=== PATIENT | male | born 1995 | race African-American/Black ===

== ENCOUNTER 2018-09-04 20:35 | Emergency (ER) | payer BC ==
[2018-09-04] MEDS ORDERED: IBUPROFEN 400 MG TAB ONE (21:05)
--- NOTE | 2018-09-04 21:46 | EDPHYS ---
Physician Documentation [facility] Name: Delroy Herrera Age: 22 yrs Sex: Male : 1995 Arrival Date: 09/04/2018 Time: 20:37 Bed 13 Private MD: ED Physician Paulino Contreras HPI: 09/04 20:55 This 22 yrs old Black Male presents to ER via Ambulatory with complaints of Sinus cp Congestion, Fever. 20:55 The patient or guardian reports cough, that is intermittent, with no sputum. Onset: The cp symptoms/episode began/occurred 3 day(s) ago. 20:55 Mother reports patient was seen by PCP this past for similar complaints and cp prescribed tamiflu and Z-ivette for symptoms. Patient had negative test for flu at that time. Historical: - Allergies: 20:42 No Known Allergies; la1 - Home Meds: 20:42 None [Active]; la1 - PMHx: 20:42 None; la1 - PSHx: 20:42 None; la1 - Immunization history:: Adult Immunizations up to date. - Social history:: Smoking status: Patient/guardian denies using tobacco. - Ebola Screening: : No symptoms or risks identified at this time. ROS: 21:00 Constitutional: Positive for fever, Negative for poor PO intake. cp 21:00 ENT: Positive for sore throat, Negative for drainage from ear(s), ear pain, difficulty cp swallowing, difficulty handling secretions. 21:00 Neck: Negative for pain with movement, pain at rest, stiffness. 21:00 Respiratory: Positive for cough, with no reported sputum, Negative for wheezing. 21:00 Abdomen/GI: Negative for abdominal pain, vomiting, diarrhea, constipation. 21:00 Skin: Negative for rash. 21:00 Neuro: Negative for altered mental status, headache. 21:00 All other systems are negative. Exam: 21:05 Constitutional: The patient appears in no acute distress, alert, awake, non-toxic, well cp developed, well nourished, febrile. 21:05 Head/Face: Normocephalic, atraumatic. cp 21:05 Eyes: Periorbital structures: appear normal, Conjunctiva: normal, no exudate, no injection, Lids and lashes: appear normal, bilaterally. 21:05 ENT: External ear(s): are unremarkable, Ear canal(s): are normal, clear, TM's: bulging, is not appreciated, bilaterally, dullness, bilaterally, erythema, is not appreciated, bilaterally, Nose: is normal, Mouth: Lips: moist, Oral mucosa: pink and intact, moist, Posterior pharynx: Airway: no evidence of obstruction, patent, Tonsils: with erythema, no enlargement, no exudate, swelling, is not appreciated, erythema, that is mild, exudate, is not appreciated. 21:05 Neck: ROM/movement: is normal, is supple, without pain, no range of motions limitations, no meningismus, no nuchal rigidity. 21:05 Chest/axilla: Inspection: normal, Palpation: is normal, no crepitus, no tenderness. 21:05 Cardiovascular: Rate: tachycardic, Rhythm: regular. 21:05 Respiratory: the patient does not display signs of respiratory distress, Respirations: normal, no use of accessory muscles, no retractions, no splinting, no tachypnea, labored breathing, is not present, Breath sounds: decreased breath sounds, are not appreciated, stridor, is not appreciated, + upper airway congestion. wheezing: is not appreciated. 21:05 Abdomen/GI: Exam negative for discomfort, distension, guarding, Inspection: abdomen appears normal. Vital Signs: 20:42 BP 121 / 90; Pulse 101; Resp 16; Temp 100.4; Pulse Ox 100% on R/A; Height 6 ft. 1 in. la1 (185.42 cm); 20:44 Weight 73.03 kg; la1 21:20 BP 115 / 70; Pulse 95; Resp 18; Pulse Ox 98% ; rr5 22:16 BP 122 / 80; Pulse 90; Resp 17; Temp 98.7; Pulse Ox 100% on R/A; rr5 20:44 Body Mass Index 21.24 (73.03 kg, 185.42 cm) la1 MDM: 20:44 Patient medically screened. cp 21:00 Differential Diagnosis: Bronchitis Influenza Sinusitis Pharyngitis Otitis Media Viral cp Syndrome Pneumonia. 21:45 Data reviewed: vital signs, nurses notes, lab test result(s), radiologic studies, plain cp films. 21:45 Test interpretation: by ED physician or midlevel provider: plain radiologic studies. cp Counseling: I had a detailed discussion with the patient and/or guardian regarding: the historical points, exam findings, and any diagnostic results supporting the discharge/admit diagnosis, lab results, radiology results, to return to the emergency department if symptoms worsen or persist or if there are any questions or concerns that arise at home. ED course: VSS. Chest xray negative for focal infiltrates. 21:45 ED course: Recommend current medications and OTC tylenol and motrin for fever. 09/04 20:50 Order name: Influenza Screen (a \T\ B); Complete Time: 21:31 09/04 21:31 Interpretation: Normal except: FLUB FLU B ----- \T\nbsp; \T\nbsp; \T\nbsp; \T\nbsp; \T\nbsp; cp \T\nbsp; \T\nbsp; \T\nbsp; \T\nbsp; POSITIVE for FLU B protein antigen. 09/04 20:50 Order name: Strep; Complete Time: 21:31 09/04 21:32 Interpretation: Reviewed. 09/04 20:50 Order name: XRAY Chest Pa And Lat (2 Views) 09/04 21:15 Order name: Throat Culture EDMS Administered Medications: 20:56 Drug: Ibuprofen 800 mg Route: PO; rr5 22:13 Follow up: Response: No adverse reaction rr5 22:13 Not Given (Patient Refused): Tussionex Pennkinetic ER 5 ml PO once rr5 Disposition: 22:20 Chart complete. 22:25 Co-signature as Attending Physician, Paulino Contreras MD. rn Disposition: 09/04/18 21:46 Discharged to Home. Impression: Influenza due to other identified influenza virus - influenza B. - Condition is Stable. - Discharge Instructions: Influenza, Adult. - Prescriptions for Ibuprofen 800 mg Oral Tablet - take 1 tablet by ORAL route every 8 hours As needed take with food; 30 tablet. - Medication Reconciliation Form, Thank You Letter, Antibiotic Education, Prescription Opioid Use, Work release form form. - Follow up: Private Physician; When: 2 - 3 days; Reason: Worsening of condition. - Problem is new. - Symptoms have improved. Signatures: Dispatcher [employer] EDMS Paulino Contreras MD MD rn Attema, Lee, RN RN la1 Larry Enciso PA PA cp Roque, Raymond, RN RN rr5 Corrections: (The following items were deleted from the chart) 22:19 21:46 09/04/2018 21:46 Discharged to Home. Impression: Influenza due to other rr5 identified influenza virus - influenza B. Condition is Stable. Forms are Medication Reconciliation Form, Thank You Letter, Antibiotic Education, Prescription Opioid Use. Follow up: Private Physician; When: 2 - 3 days; Reason: Worsening of condition. Problem is new. Symptoms have improved. cp
--- NOTE | 2018-09-04 21:46 | ER ---
Nurse's Notes [facility] Name: Delroy Herrera Age: 22 yrs Sex: Male : 1995 Arrival Date: 09/04/2018 Time: 20:37 Bed 13 Private MD: Diagnosis: Influenza due to other identified influenza virus-influenza B Presentation: 09/04 20:41 Presenting complaint: Patient states: I have been having cough and fever since la1 Thursday. Seen at on , given z pack and tamiflu. Finished tamiful, started z pack yesterday. Transition of care: patient was not received from another setting of care. Onset of symptoms was September 04, 2018. Risk Assessment: Do you want to hurt yourself or someone else? Patient reports no desire to harm self or others. Initial Sepsis Screen: Does the patient meet any 2 criteria? No. Patient's initial sepsis screen is negative. Does the patient have a suspected source of infection? No. Patient's initial sepsis screen is negative. Care prior to arrival: None. 20:41 Method Of Arrival: Ambulatory la1 20:41 Acuity: NANCY 4 la1 Historical: - Allergies: 20:42 No Known Allergies; la1 - Home Meds: 20:42 None [Active]; la1 - PMHx: 20:42 None; la1 - PSHx: 20:42 None; la1 - Immunization history:: Adult Immunizations up to date. - Social history:: Smoking status: Patient/guardian denies using tobacco. - Ebola Screening: : No symptoms or risks identified at this time. Screenin:56 Abuse screen: Denies threats or abuse. Denies injuries from another. Nutritional rr5 screening: No deficits noted. Tuberculosis screening: No symptoms or risk factors identified. Fall Risk None identified. Total Yu Fall Scale indicates No Risk (0-24 pts). Assessment: 20:45 General: Appears in no apparent distress. uncomfortable, Behavior is calm, cooperative, rr5 appropriate for age. Pain: Denies pain. Neuro: Level of Consciousness is awake, alert, obeys commands, Oriented to person, place, time, situation, Appropriate for age. Cardiovascular: Capillary refill < 3 seconds Patient's skin is warm and dry. Respiratory: Reports cough that is non-productive, flu like symptoms Airway is patent Respiratory effort is even, unlabored, Respiratory pattern is regular, symmetrical. GI: No signs and/or symptoms were reported involving the gastrointestinal system. : No signs and/or symptoms were reported regarding the genitourinary system. EENT: No signs and/or symptoms were reported regarding the EENT system. Throat is clear with gag reflex present. Derm: Skin is intact, Skin temperature is warm. 20:45 Musculoskeletal: Capillary refill < 3 seconds. rr5 21:25 Reassessment: Patient appears in no apparent distress at this time. No changes from rr5 previously documented assessment. 22:18 Reassessment: Patient appears in no apparent distress at this time. Patient is alert, rr5 oriented x 3, equal unlabored respirations, skin warm/dry/pink. discharge instruction given and explained without complaints made. patient refused for tussionex medication. ED provider aware Patient states symptoms have improved. Vital Signs: 20:42 BP 121 / 90; Pulse 101; Resp 16; Temp 100.4; Pulse Ox 100% on R/A; Height 6 ft. 1 in. la1 (185.42 cm); 20:44 Weight 73.03 kg; la1 21:20 BP 115 / 70; Pulse 95; Resp 18; Pulse Ox 98% ; rr5 22:16 BP 122 / 80; Pulse 90; Resp 17; Temp 98.7; Pulse Ox 100% on R/A; rr5 20:44 Body Mass Index 21.24 (73.03 kg, 185.42 cm) la1 ED Course: 20:37 Patient arrived in ED. do 20:42 Triage completed. la1 20:42 Arm band placed on left wrist. la1 20:43 Magdaleno Hernandez PA is PHCP. jr8 20:43 Paulino Contreras MD is Attending Physician. jr8 20:43 PHCP role handed off by Magdaleno Hernandez PA cp 20:43 Larry Enciso PA is PHCP. cp 20:49 Sukhjinder Elkins RN is Primary Nurse. rr5 20:57 Patient has correct armband on for positive identification. Call light in reach. Pulse rr5 ox on. NIBP on. 21:24 XRAY Chest Pa And Lat (2 Views) In Process Unspecified. EDMS 22:15 No provider procedures requiring assistance completed. Patient did not have IV access rr5 during this emergency room visit. Administered Medications: 20:56 Drug: Ibuprofen 800 mg Route: PO; rr5 22:13 Follow up: Response: No adverse reaction rr5 22:13 Not Given (Patient Refused): Tussionex Pennkinetic ER 5 ml PO once rr5 Outcome: 21:46 Discharge ordered by . cp 22:15 Discharged to home ambulatory. rr5 22:15 Condition: stable 22:15 Discharge instructions given to patient, family, Instructed on discharge instructions, follow up and referral plans. medication usage, Demonstrated understanding of instructions, follow-up care, medications, Prescriptions given X 1. 22:19 Patient left the ED. rr5 Signatures: Dispatcher [employer] EDMS Magdaleno Hernandez PA PA jr8 Ricardo Duenas RN RN la1 Larry Enciso PA PA cp Ogletree, Danielle do Roque, Raymond RN RN rr5
[2018-09-04] MEDS ORDERED: HYDROCODONE/CHLORPHEN 5 ML/OSYR ONE (22:16)
--- NOTE | 2018-09-05 08:34 | RAD REPORT ---
EXAM DESCRIPTION: RAD - Chest Pa And Lat (2 Views) - 09/04/2018 9:30 pm CLINICAL HISTORY: Cough, fever COMPARISON: March 2017 no significant interval change TECHNIQUE: PA and lateral views of the chest were obtained. FINDINGS: The lungs are clear. Heart size is normal and central vasculature is within normal limit s. No pleural effusion or pneumothorax seen. No acute bony finding noted. No aortic abnormality. IMPRESSION: No acute cardiopulmonary process.
== END 2018-09-04 22:19 | disposition home or self-care (01) ==
LOC: ER 20:35
DX: J10.1 Influenza due to other identified influenza virus with other respiratory manifestations (principal)
CPT/HCPCS: 71046; 87070; 87081; 87804; 99284

== ENCOUNTER 2018-12-24 04:26 | Emergency (ER) | payer BC ==
[2018-12-24] MEDS ORDERED: IBUPROFEN 400 MG TAB ONE (04:52)
[2018-12-24] MEDS ORDERED: NA CHLORIDE 0.9% 1,000 ML ONE ×2 (04:53→07:23)
[2018-12-24] MEDS ORDERED: ACETAMINOPHEN 500 MG TAB ONE (04:53)
[2018-12-24] MEDS ORDERED: IBUPROFEN 200 MG TAB PO ONE (04:53)
[2018-12-24 05:43] LABS: ALT/SGPT 19 U/L (12-78); AST/SGOT 17 U/L (15-37); Absolute Lymphocytes (CBC) 0.7 K/uL (0.7-4.9); Albumin 4.2 g/dL (3.4-5.0); Alkaline Phosphatase 53 U/L (45-117); BUN Blood Urea Nitrogen 17 mg/dL (7-18); Basophils % 0.4 % (0-1.3); Bicarbonate 27 mmol/L (21-32); Bilirubin Direct 0.2 mg/dL (0-0.2); Bilirubin Total 0.7 mg/dL (0.2-1.0); Glucose Level 87 mg/dL (74-106); Hematocrit 41.6 % (39.6-49.0); Lymphocytes % 12.2 % (15.3-44.8); MPV 8.4 fL (7.6-11.3); Potassium 3.7 mmol/L (3.5-5.1); Protein, Total 8.2 g/dL (6.4-8.2); RBC Red Blood Cell Count 5.04 M/uL (4.33-5.43); Sodium Level 140 mmol/L (136-145)
[2018-12-24 06:37] LABS: Urine Bacteria <20 /HPF (NONE SEEN); Urine Culture Reflex Order NOT NEEDED; Urine RBC NONE SEEN /HPF (NONE SEEN)
[2018-12-24 07:16] LABS: Urine Blood NEGATIVE (NEG); Urine Glucose NEGATIVE (NEG); Urine Protein NEGATIVE (NEG); Urine Specific Gravity 1.025 (1.005-1.030); Urine pH 7.5 (5.0-7.0)
--- NOTE | 2018-12-24 08:42 | RAD REPORT ---
EXAM DESCRIPTION: Adrienne Single View12/24/2018 5:11 am CLINICAL HISTORY: Fever COMPARISON: August 2018 FINDINGS: Lungs are hyperaerated. The lungs appear clear of acute infiltrate. The heart is normal size IMPRESSION: No acute abnormalities displayed
--- NOTE | 2018-12-24 09:28 | ER ---
Nurse's Notes [facility] Name: Delroy Herrera Age: 23 yrs Sex: Male : 1995 Arrival Date: 12/24/2018 Time: 04:29 Bed 8 Private MD: Diagnosis: Viral infection of unspecified site Presentation: 12/24 04:41 Presenting complaint: Patient states: fever and shivering started at 0230. pt mother ak1 stated she was admitted to hospital with pneumonia, mono and was septic last week. Transition of care: patient was not received from another setting of care. Onset of symptoms was December 24, 2018. Risk Assessment: Do you want to hurt yourself or someone else? Patient reports no desire to harm self or others. Initial Sepsis Screen: Does the patient meet any 2 criteria? Yes Does the patient have a suspected source of infection? No. Patient's initial sepsis screen is negative. Care prior to arrival: None. 04:41 Method Of Arrival: Ambulatory ak1 04:41 Acuity: NANCY 3 ak1 Triage Assessment: 04:43 General: Appears uncomfortable, Behavior is calm, cooperative, appropriate for age. ak1 Pain: Complains of pain in body aches. EENT: Nares with drainage noted. Neuro: Level of Consciousness is awake, alert, obeys commands, Oriented to person, place, time, situation, Appropriate for age Solar Lab Technician are equal bilaterally Moves all extremities. Gait is steady, Speech is normal. Cardiovascular: No deficits noted. Respiratory: No deficits noted. GI: No signs and/or symptoms were reported involving the gastrointestinal system. : No signs and/or symptoms were reported regarding the genitourinary system. Derm: Skin is intact, Skin is dry, Skin temperature is hot. Musculoskeletal: Reports general body aches. Historical: - Allergies: 04:43 No Known Allergies; ak1 - Home Meds: 04:43 None [Active]; ak1 - PMHx: 04:43 None; ak1 - PSHx: 04:43 None; ak1 - Immunization history:: Adult Immunizations up to date. - Social history:: Smoking status: Patient/guardian denies using tobacco. - Ebola Screening: : No symptoms or risks identified at this time. - Family history:: as noted above. - Hospitalizations: : No recent hospitalization is reported. Screenin:45 Abuse screen: Denies threats or abuse. Denies injuries from another. Nutritional ak1 screening: No deficits noted. Tuberculosis screening: No symptoms or risk factors identified. Fall Risk None identified. Assessment: 05:00 General: Appears uncomfortable, well groomed, Behavior is calm, cooperative, jv1 appropriate for age, Reports chills for 0-12 hours. Pain: Denies pain. Neuro: Level of Consciousness is awake, alert, obeys commands, Oriented to person, place, time, situation. Cardiovascular: Heart tones S1 S2 present Capillary refill < 3 seconds Patient's skin is warm and dry. Pulses are all present. Rhythm is sinus tachycardia. Respiratory: Airway is patent Respiratory effort is even, unlabored, Respiratory pattern is regular, symmetrical, Breath sounds are clear bilaterally. GI: No signs and/or symptoms were reported involving the gastrointestinal system. : No signs and/or symptoms were reported regarding the genitourinary system. EENT: No signs and/or symptoms were reported regarding the EENT system. Derm: Skin is intact, is healthy with good turgor, Skin is dry, Skin is normal, Skin temperature is hot. Musculoskeletal: Circulation, motion, and sensation intact. Range of motion: intact in all extremities. 06:00 Reassessment: Patient appears in no apparent distress at this time. Patient and/or jv1 family updated on plan of care and expected duration. Pain level reassessed. Patient is alert, oriented x 3, equal unlabored respirations, skin warm/dry/pink. pt's eyes closed, resp even and unlabored, call light within reach. instructed to call for any assistance Patient denies pain at this time. 07:00 Reassessment: RECD REPORT FROM RAHUL DEY. 23YO BM P/W FEVER, TMAX 102.1. ALL CURRENT bp ORDERS COMPLETED. 08:00 Reassessment: Patient appears in no apparent distress at this time. Patient and/or hb family updated on plan of care and expected duration. Pain level reassessed. Patient is alert, oriented x 3, equal unlabored respirations, skin warm/dry/pink. 08:27 Reassessment: Pt ambulated to bathroom without assistance with steady gait. hb Vital Signs: 04:43 BP 127 / 86; Pulse 125; Resp 20; Temp 102.2(O); Pulse Ox 100% on R/A; Weight 72.57 kg ak1 (R); Height 6 ft. 0 in. (182.88 cm) (R); Pain 0/10; 06:10 BP 134 / 86; Pulse 104; Resp 23 S; Temp 102.1(O); Pulse Ox 97% on R/A; Pain 0/10; jv1 06:10 Temp 102.1; Pain 0/10; jv1 06:10 Temp 102.1; Pain 0/10; jv1 06:56 BP 121 / 83; Pulse 98; Resp 18; Temp 101.2; Pulse Ox 97% ; Pain 0/10; jv1 08:00 BP 127 / 74; Pulse 72; Resp 15; Temp 97.6(TE); Pulse Ox 100% on R/A; hb 04:43 Body Mass Index 21.70 (72.57 kg, 182.88 cm) ak1 ED Course: 04:29 Patient arrived in ED. ag3 04:37 Gigi Schuler MD is Attending Physician. wa 04:41 Sonya Alvarez, TIBURCIO is Primary Nurse. ak1 04:42 Triage completed. ak1 04:43 Arm band placed on Patient placed in an exam room, on a stretcher, on pulse oximetry, ak1 Patient notified of wait time. 04:45 Patient has correct armband on for positive identification. Bed in low position. Call ak1 light in reach. Side rails up X 1. Adult w/ patient. Pulse ox on. NIBP on. 05:05 Inserted saline lock: 20 gauge in right antecubital area, using aseptic technique. jv1 Blood collected. 05:05 Initial lab(s) drawn, by co, sent to lab. jv1 05:07 Chest Single View XRAY In Process Unspecified. EDMS 05:53 Urine collected: clean catch specimen, clear, sent to lab. jv1 07:07 Report given to TIBURCIO Ladd. jv1 07:13 Attending Physician role handed off by Gigi Schuler MD kdr 07:13 Philippe Bowles MD is Attending Physician. kdr Administered Medications: 05:10 Drug: Acetaminophen 1000 mg Route: PO; jv1 06:10 Follow up: Temp 102.1; Pain 0/10 Adult; Response: No adverse reaction; Temperature is jv1 unchanged 05:10 Drug: Motrin 600 mg Route: PO; jv1 06:10 Follow up: Temp 102.1; Pain 0/10 Adult; Response: No adverse reaction; Temperature is jv1 unchanged 05:10 Drug: NS 0.9% 1000 ml Route: IV; Rate: 1 bolus; Site: right antecubital; jv1 05:45 Follow up: Response: No adverse reaction; IV Status: Completed infusion; IV Intake: jv1 1000ml 07:27 Drug: NS 0.9% 1000 ml Route: IV; Rate: 1 bolus; Site: right antecubital; hb 08:28 Follow up: Response: No adverse reaction; IV Status: Completed infusion; IV Intake: hb 1000ml Intake: 05:45 IV: 1000ml; Total: 1000ml. jv1 08:28 IV: 1000ml; Total: 2000ml. hb Outcome: 09:27 Discharge ordered by . kdr 10:23 Patient left the ED. hb Signatures: Dispatcher [employer] EDMS Philippe Bowles MD MD kdr Krenek, Amber RN RN ak1 Zakiya Velez RN RN Gigi Schuler MD MD ar Wilberto Lemus, RN RN bp Emily Florian, RN TIBURCIO jv1 Ana Flood ag3 Corrections: (The following items were deleted from the chart) 05:34 05:24 General: Appears uncomfortable, well groomed, Behavior is calm, cooperative, jv1 appropriate for age, Reports chills for 0-12 hours, jv1 05:34 05:24 Pain: Denies pain. jv1 jv1 05:34 05:24 Neuro: Level of Consciousness is awake, alert, obeys commands, Oriented to jv1 person, place, time, situation, jv1 05:34 05:24 Cardiovascular: Heart tones S1 S2 present Capillary refill < 3 seconds Patient's jv1 skin is warm and dry. Pulses are all present. Rhythm is sinus tachycardia jv1 05:34 05:24 Respiratory: Airway is patent Respiratory effort is even, unlabored, Respiratory jv1 pattern is regular, symmetrical, Breath sounds are clear bilaterally. jv1 05:34 05:24 GI: No signs and/or symptoms were reported involving the gastrointestinal system. jv1 jv1 05:34 05:24 : No signs and/or symptoms were reported regarding the genitourinary system. jv1jv1 :34 05:24 EENT: No signs and/or symptoms were reported regarding the EENT system. jv1 jv1 :34 05:24 Derm: Skin is intact, is healthy with good turgor, Skin is dry, Skin is normal, jv1 Skin temperature is hot jv1 :34 05:24 Musculoskeletal: Circulation, motion, and sensation intact. Range of motion: jv1 intact in all extremities, jv1 06:33 06:00 Reassessment: Patient appears in no apparent distress at this time. Patient jv1 and/or family updated on plan of care and expected duration. Pain level reassessed. Patient is alert, oriented x 3, equal unlabored respirations, skin warm/dry/pink. pt's eyes closed, resp even and unlabored, call light within reach. instructed to call for any assistance jv1 08:31 08:00 BP 127 / 74; Pulse 72bpm; Resp 15bpm; Pulse Ox 100% RA; hb hb
--- NOTE | 2018-12-24 09:28 | EDPHYS ---
Physician Documentation [facility] Name: Delroy Herrera Age: 23 yrs Sex: Male : 1995 Arrival Date: 12/24/2018 Time: 04:29 Bed 8 Private MD: ED Physician Philippe Bowles HPI: 12/24 04:49 This 23 yrs old Black Male presents to ER via Ambulatory with complaints of Fever. wa 04:49 The patient reports fever, that was measured at 102.2 degrees Fahrenheit. Onset: The wa symptoms/episode began/occurred today. Modifying factors: there are no obvious modifying factors. Associated signs and symptoms: Pertinent negatives: abdominal pain, backache, chills, cough, diarrhea, headache, myalgias, runny nose, sinus drainage, skin rash, shortness of breath, sore throat. Severity of symptoms: At their worst the symptoms were moderate in the emergency department the symptoms are unchanged. The patient has not experienced similar symptoms in the past. The patient has not recently seen a physician. 05:12 fever today. mum had mono and pna 2 weeks ego, wants to know if has same. denies JUAREZ, wa SOB, cough, CP or abd pain . Historical: - Allergies: 04:43 No Known Allergies; ak1 - Home Meds: 04:43 None [Active]; ak1 - PMHx: 04:43 None; ak1 - PSHx: 04:43 None; ak1 - Immunization history:: Adult Immunizations up to date. - Social history:: Smoking status: Patient/guardian denies using tobacco. - Ebola Screening: : No symptoms or risks identified at this time. - Family history:: as noted above. - Hospitalizations: : No recent hospitalization is reported. ROS: 05:15 Eyes: Negative for injury, pain, redness, and discharge, ENT: Negative for injury, wa pain, and discharge, Neck: Negative for injury, pain, and swelling, Cardiovascular: Negative for chest pain, palpitations, and edema, Respiratory: Negative for shortness of breath, cough, wheezing, and pleuritic chest pain, Abdomen/GI: Negative for abdominal pain, nausea, vomiting, diarrhea, and constipation, Back: Negative for injury and pain, : Negative for injury, bleeding, discharge, and swelling, MS/Extremity: Negative for injury and deformity, Skin: Negative for injury, rash, and discoloration, Neuro: Negative for headache, weakness, numbness, tingling, and seizure. 05:15 Constitutional: Positive for chills, fever. 05:15 All other systems are negative. Exam: 05:16 Head/Face: Normocephalic, atraumatic. Eyes: Pupils equal round and reactive to light, wa extra-ocular motions intact. Lids and lashes normal. Conjunctiva and sclera are non-icteric and not injected. Cornea within normal limits. Periorbital areas with no swelling, redness, or edema. ENT: Nares patent. No nasal discharge, no septal abnormalities noted. Tympanic membranes are normal and external auditory canals are clear. Oropharynx with no redness, swelling, or masses, exudates, or evidence of obstruction, uvula midline. Mucous membranes moist. Neck: Trachea midline, no thyromegaly or masses palpated, and no cervical lymphadenopathy. Supple, full range of motion without nuchal rigidity, or vertebral point tenderness. No Meningismus. Chest/axilla: Normal chest wall appearance and motion. Nontender with no deformity. No lesions are appreciated. Cardiovascular: Regular rate and rhythm with a normal S1 and S2. No gallops, murmurs, or rubs. Normal PMI, no JVD. No pulse deficits. Respiratory: Lungs have equal breath sounds bilaterally, clear to auscultation and percussion. No rales, rhonchi or wheezes noted. No increased work of breathing, no retractions or nasal flaring. Abdomen/GI: Soft, non-tender, with normal bowel sounds. No distension or tympany. No guarding or rebound. No evidence of tenderness throughout. Back: No spinal tenderness. No costovertebral tenderness. Full range of motion. Skin: Warm, dry with normal turgor. Normal color with no rashes, no lesions, and no evidence of cellulitis. MS/ Extremity: Pulses equal, no cyanosis. Neurovascular intact. Full, normal range of motion. Neuro: Awake and alert, GCS 15, oriented to person, place, time, and situation. Cranial nerves II-XII grossly intact. Motor strength 5/5 in all extremities. Sensory grossly intact. Cerebellar exam normal. Normal gait. Psych: Awake, alert, with orientation to person, place and time. Behavior, mood, and affect are within normal limits. 05:16 Constitutional: The patient appears in no acute distress, alert, febrile. Vital Signs: 04:43 BP 127 / 86; Pulse 125; Resp 20; Temp 102.2(O); Pulse Ox 100% on R/A; Weight 72.57 kg ak1 (R); Height 6 ft. 0 in. (182.88 cm) (R); Pain 0/10; 06:10 BP 134 / 86; Pulse 104; Resp 23 S; Temp 102.1(O); Pulse Ox 97% on R/A; Pain 0/10; jv1 06:10 Temp 102.1; Pain 0/10; jv1 06:10 Temp 102.1; Pain 0/10; jv1 06:56 BP 121 / 83; Pulse 98; Resp 18; Temp 101.2; Pulse Ox 97% ; Pain 0/10; jv1 08:00 BP 127 / 74; Pulse 72; Resp 15; Temp 97.6(TE); Pulse Ox 100% on R/A; hb 04:43 Body Mass Index 21.70 (72.57 kg, 182.88 cm) ak1 MDM: 04:37 Patient medically screened. 05:16 Differential diagnosis: viral Infection, bacterial infection, pneumonia UTI, wa meningitis. Data reviewed: vital signs, nurses notes. 06:28 Test interpretation: by ED physician or midlevel provider: CXR nml. labs wnl. . 07:23 ED course: The patient is still feeling poor but much better than when he arrived. With kdr interaction, he was intermittently tachycardic, but temp has improved. 12/24 04:47 Order name: Basic Metabolic Panel; Complete Time: 06:28 12/24 04:47 Order name: CBC with Diff; Complete Time: 06:28 12/24 04:47 Order name: Lactate; Complete Time: 06:28 12/24 04:47 Order name: LFT's; Complete Time: 06:28 12/24 04:47 Order name: Procalcitonin; Complete Time: 07:10 12/24 04:47 Order name: Urine Microscopic Only; Complete Time: 07:10 12/24 04:47 Order name: Chest Single View XRAY; Complete Time: 09:27 12/24 04:47 Order name: [place] Screen Profile; Complete Time: 06:28 nv 12/24 04:48 Order name: Strep; Complete Time: 06:28 nv 12/24 05:55 Order name: Urine Dipstick--Ancillary (enter results); Complete Time: 07:17 12/24 05:57 Order name: Throat Culture EDMS 12/24 04:47 Order name: Cardiac monitoring; Complete Time: 05:21 nv 12/24 04:47 Order name: IV Saline Lock - Large Bore; Complete Time: 05:16 nv 12/24 04:47 Order name: Labs collected and sent; Complete Time: 05:16 nv 12/24 04:47 Order name: O2 Per Protocol; Complete Time: 04:48 nv 12/24 04:47 Order name: O2 Sat Monitoring; Complete Time: 04:48 nv 12/24 04:47 Order name: Urine Dipstick-Ancillary (obtain specimen); Complete Time: 05:52 nv Administered Medications: 05:10 Drug: Acetaminophen 1000 mg Route: PO; jv1 06:10 Follow up: Temp 102.1; Pain 0/10 Adult; Response: No adverse reaction; Temperature is jv1 unchanged 05:10 Drug: Motrin 600 mg Route: PO; jv1 06:10 Follow up: Temp 102.1; Pain 0/10 Adult; Response: No adverse reaction; Temperature is jv1 unchanged 05:10 Drug: NS 0.9% 1000 ml Route: IV; Rate: 1 bolus; Site: right antecubital; jv1 05:45 Follow up: Response: No adverse reaction; IV Status: Completed infusion; IV Intake: jv1 1000ml 07:27 Drug: NS 0.9% 1000 ml Route: IV; Rate: 1 bolus; Site: right antecubital; hb 08:28 Follow up: Response: No adverse reaction; IV Status: Completed infusion; IV Intake: hb 1000ml Disposition: 12/24/18 09:27 Discharged to Home. Impression: Viral infection of unspecified site. - Condition is Stable. - Discharge Instructions: Viral Respiratory Infection, [id number], Fever, Adult, [id number]. - Prescriptions for Tylenol 325 mg Oral tablet - take 2 tablet by ORAL route every 4 hours as needed; 20 tablet. Ibuprofen 800 mg Oral Tablet - take 1 tablet by ORAL route every 8 hours As needed take with food; 30 tablet. - Medication Reconciliation Form, Thank You Letter, Work release form, SBAR form form. - Follow up: Private Physician; When: 2 - 3 days; Reason: If symptoms return, Further diagnostic work-up, Recheck today's complaints, Continuance of care, Re-evaluation by your physician. - Problem is new. - Symptoms have improved. Signatures: Dispatcher [employer] EDMS Philippe Bowles MD MD [facility] Sonya Alvarez RN RN ak1 Zakiya Velez RN RN Gigi Schuler MD MD nv Emily Florian RN RN jv1 Corrections: (The following items were deleted from the chart) 10:23 09:27 12/24/2018 09:27 Discharged to Home. Impression: Viral infection of unspecified hb site. Condition is Stable. Forms are SBAR form, Medication Reconciliation Form, Thank You Letter, Antibiotic Education, Prescription Opioid Use. Follow up: Private Physician; When: 2 - 3 days; Reason: If symptoms return, Further diagnostic work-up, Recheck today's complaints, Continuance of care, Re-evaluation by your physician. Problem is new. Symptoms have improved. kdr
== END 2018-12-24 10:23 | disposition home or self-care (01) ==
LOC: ER 04:26
DX: B34.9 Viral infection, unspecified (principal); R50.9 Fever, unspecified
CPT/HCPCS: 36415; 71045; 80048; 80076; 81003; 81015; 83605; 84145; 85025; 86308; 87070; 87081; 96360; 96361; 99284; J7030

== ENCOUNTER 2018-12-27 08:14 | Emergency (ER) | payer BC ==
[2018-12-27] MEDS ORDERED: ACETAMINOPHEN 500 MG TAB ONE (08:48)
[2018-12-27] MEDS ORDERED: KETOROLAC 30 MG/ML INJ ONE (08:48)
[2018-12-27] MEDS ORDERED: NA CHLORIDE 0.9% 1,000 ML ONE (08:53)
[2018-12-27 09:19] LABS: Absolute Lymphocytes (CBC) 0.8 K/uL (0.7-4.9); Basophils % 0.5 % (0-1.3); Hematocrit 42.7 % (39.6-49.0); Lymphocytes % 17.5 % (15.3-44.8); MPV 8.4 fL (7.6-11.3); RBC Red Blood Cell Count 5.22 M/uL (4.33-5.43)
--- NOTE | 2018-12-27 09:27 | RAD REPORT ---
EXAM DESCRIPTION: CT - Head Brain Wo Cont - 12/27/2018 9:11 am CLINICAL HISTORY: Headache, fever COMPARISON: None. TECHNIQUE: Axial 5 mm thick images of the head were obtained without IV contrast. All CT scans are performed using dose optimization technique as appropriate and may include automated exposure control or mA/KV adjustment according to patient size. FINDINGS: No intracranial hemorrhage, mass, edema or shift of mid-line structures. No acute infarcti on changes seen. No abnormal extra-axial fluid collections. Ventricles are normal. Mastoid air cells and visualized portions of the paranasal sinuses are clear. No acute bony findings. IMPRESSION: Negative non-contrast CT head examination.
[2018-12-27 09:37] LABS: ALT/SGPT 23 U/L (12-78); AST/SGOT 19 U/L (15-37); Alkaline Phosphatase 49 U/L (45-117); BUN Blood Urea Nitrogen 9 mg/dL (7-18); Bicarbonate 26 mmol/L (21-32); Bilirubin Direct 0.1 mg/dL (0-0.2); Bilirubin Total 0.4 mg/dL (0.2-1.0); Glucose Level 94 mg/dL (74-106); Potassium 3.6 mmol/L (3.5-5.1); Protein, Total 8.2 g/dL (6.4-8.2); Sodium Level 138 mmol/L (136-145)
[2018-12-27 11:31] LABS: Urine Blood TRACE (NEG); Urine Glucose NEGATIVE (NEG); Urine Protein NEGATIVE (NEG); Urine Specific Gravity <1.005 (1.005-1.030); Urine pH 5.5 (5.0-7.0)
[2018-12-27] MEDS ORDERED: LORazepam 2 MG/ML VIAL ONE (12:05)
[2018-12-27] MEDS ORDERED: FENTANYL CITR 100 MCG/2 ML ONE (12:06)
[2018-12-27 13:02] LABS: CSF Glucose 45 mg/dL (40-70)
[2018-12-27 13:44] LABS: Appearance CLEAR (CLEAR); Body Fluid Source CSF; Color of fluid Colorless (COLORLESS)
[2018-12-27 13:46] LABS: Body Fluid WBC 8 /mm^3
[2018-12-27 13:51] LABS: Appearance CLEAR (CLEAR); Body Fluid Source CSF; Body Fluid WBC 4 /mm^3; Color of fluid Colorless (COLORLESS); Fluid Total Volume 4 ml
--- NOTE | 2018-12-27 14:41 | EDPHYS ---
Physician Documentation [facility] Name: Delroy Herrera Age: 23 yrs Sex: Male : 1995 Arrival Date: 12/27/2018 Time: 08:19 Bed 5 Private MD: ED Physician Gigi Schuler HPI: 12/27 08:52 This 23 yrs old Black Male presents to ER via Ambulatory with complaints of Headache, wa Fever. 08:52 The patient complains of pain to the diffuse. The patient describes the headache as wa aching. Onset: The symptoms/episode began/occurred 4 day(s) ago. Associated signs and symptoms: Pertinent positives: fever, Pertinent negatives: altered mental status, nausea, neck stiffness, Photophobia rash, sinus congestion, vomiting, weakness. 08:53 Severity of symptoms: At its worst the pain was moderate, in the emergency department wa the pain is unchanged. Headache History: Denies prior headaches. The symptoms are alleviated by nothing. the symptoms are aggravated by nothing. The patient has not experienced similar symptoms in the past. The patient has been recently seen by a physician: 3 day(s) ago, in this ED. Seen 3 days ago in this ED. at the time had a fever x 3 hours with malaise with no other specific complaints. work up was negative. improved with ED interventions and went home. states was improving but now 1 day of JUAREZ. still with fever and chills. denies photophobia. denies neck stiffness, denies N/V. Historical: - Allergies: 08:31 No Known Allergies; jl7 - Home Meds: 08:31 None [Active]; jl7 - PMHx: 08:31 None; jl7 - PSHx: 08:31 None; jl7 - Immunization history:: Adult Immunizations unknown. - Social history:: Smoking status: Patient/guardian denies using tobacco. - Ebola Screening: : No symptoms or risks identified at this time. - Family history:: not pertinent. - Hospitalizations: : No recent hospitalization is reported. ROS: 08:57 Eyes: Negative for injury, pain, redness, and discharge, ENT: Negative for injury, wa pain, and discharge, Neck: Negative for injury, pain, and swelling, Cardiovascular: Negative for chest pain, palpitations, and edema, Respiratory: Negative for shortness of breath, cough, wheezing, and pleuritic chest pain, Abdomen/GI: Negative for abdominal pain, nausea, vomiting, diarrhea, and constipation, Back: Negative for injury and pain, : Negative for injury, bleeding, discharge, and swelling, MS/Extremity: Negative for injury and deformity, Skin: Negative for injury, rash, and discoloration. 08:57 Constitutional: Positive for body aches, chills, fatigue, fever, malaise, Negative for poor PO intake, weight loss. 08:57 Neuro: Positive for headache, Negative for altered mental status, dizziness, gait disturbance, loss of consciousness, seizure activity, speech changes, syncope, visual changes, weakness. 08:57 All other systems are negative. Exam: 08:59 Head/Face: Normocephalic, atraumatic. Eyes: Pupils equal round and reactive to light, wa extra-ocular motions intact. Lids and lashes normal. Conjunctiva and sclera are non-icteric and not injected. Cornea within normal limits. Periorbital areas with no swelling, redness, or edema. ENT: Nares patent. No nasal discharge, no septal abnormalities noted. Tympanic membranes are normal and external auditory canals are clear. Oropharynx with no redness, swelling, or masses, exudates, or evidence of obstruction, uvula midline. Mucous membranes moist. Neck: Trachea midline, no thyromegaly or masses palpated, and no cervical lymphadenopathy. Supple, full range of motion without nuchal rigidity, or vertebral point tenderness. No Meningismus. Chest/axilla: Normal chest wall appearance and motion. Nontender with no deformity. No lesions are appreciated. Cardiovascular: Regular rate and rhythm with a normal S1 and S2. No gallops, murmurs, or rubs. Normal PMI, no JVD. No pulse deficits. Respiratory: Lungs have equal breath sounds bilaterally, clear to auscultation and percussion. No rales, rhonchi or wheezes noted. No increased work of breathing, no retractions or nasal flaring. Abdomen/GI: Soft, non-tender, with normal bowel sounds. No distension or tympany. No guarding or rebound. No evidence of tenderness throughout. Back: No spinal tenderness. No costovertebral tenderness. Full range of motion. Skin: Warm, dry with normal turgor. Normal color with no rashes, no lesions, and no evidence of cellulitis. MS/ Extremity: Pulses equal, no cyanosis. Neurovascular intact. Full, normal range of motion. Psych: Awake, alert, with orientation to person, place and time. Behavior, mood, and affect are within normal limits. 08:59 Constitutional: The patient appears in no acute distress, alert, low grade fever. alert 08:59 Neuro: Orientation: is normal, Mentation: is normal, Cranial nerves: grossly normal, Cerebellar function: is grossly normal, Motor: is normal, Sensation: is normal, Gait: is steady. Vital Signs: 08:31 BP 129 / 84; Pulse 80; Resp 16 S; Temp 99.9(O); Pulse Ox 97% on R/A; Pain 8/10; jl7 09:36 BP 127 / 79; Pulse 79; Resp 16; Temp 98.7(O); Pulse Ox 100% on R/A; tw2 10:32 BP 121 / 88; Pulse 75; Resp 18; Pulse Ox 100% on R/A; tw2 11:21 BP 124 / 83; Pulse 67; Resp 17; Pulse Ox 100% on R/A; tw2 12:20 BP 124 / 85; Pulse 78; Resp 17; Pulse Ox 100% on R/A; tw2 13:19 BP 129 / 87; Pulse 62; Resp 16 S; Pulse Ox 100% on R/A; jl7 Procedures: 12:38 Lumbar Puncture: Patient placed in sitting position. Prepped with Betadine. Draped wa using sterile technique. Collected 20 ml's of clear fluid. Puncture site dressed with band aid, Patient tolerated well. MDM: 08:24 Patient medically screened. wa 08:59 Differential diagnosis: viral syndrome? consider acute meningitis. will work up and wa reassess. 11:45 Data reviewed: vital signs, nurses notes, lab test result(s), noted for mild wa luekopenia. ED course: improved. pt refusing LP. risks explained and accepted by this pt with capacity. 14:38 Test interpretation: by ED physician or midlevel provider: LP results noted negative wa for meningitis. Response to treatment: the patient's symptoms have markedly improved after treatment. 14:40 ED course: improved. noted eating a meal in ED prior to d/c. 12/27 08:41 Order name: Basic Metabolic Panel; Complete Time: 09:53 wa 12/27 08:41 Order name: CBC with Diff; Complete Time: 09:53 nv 12/27 08:41 Order name: Hepatic Function; Complete Time: 09:53 nv 12/27 08:42 Order name: [place] Screen Profile; Complete Time: 10:06 nv 12/27 08:45 Order name: CSF Bacterial Antigens (tube 1) nv 12/27 08:45 Order name: Csf Culture nv 12/27 08:41 Order name: CT Head Brain wo Cont; Complete Time: 09:53 nv 12/27 08:45 Order name: Fluid Cell Count,Body; Complete Time: 13:59 nv 12/27 08:45 Order name: Spinal Fluid Profile; Complete Time: 13:59 nv 12/27 11:19 Order name: Urine Dipstick--Ancillary (enter results); Complete Time: 11:45 12/27 11:24 Order name: HIV (1; Complete Time: 12:00 EDMS 08 08:41 Order name: Cardiac monitoring; Complete Time: 08:44 nv 12/27 08:41 Order name: IV Saline Lock; Complete Time: 09:12 nv 12/27 08:41 Order name: Labs collected and sent; Complete Time: 09:12 nv 12/27 08:41 Order name: NPO; Complete Time: 09:12 nv 12/27 08:41 Order name: O2 Sat Monitoring; Complete Time: 08:44 nv 12/27 08:41 Order name: Urine Dipstick-Ancillary (obtain specimen); Complete Time: 12:16 nv 12/27 08:45 Order name: LP Consents; Complete Time: 12:15 nv 12/27 08:45 Order name: LP Setup; Complete Time: 12:15 nv Administered Medications: 08:51 Drug: Tylenol 1000 mg Route: PO; tw2 09:30 Follow up: Response: No adverse reaction; Pain is decreased jl7 09:07 Drug: TORadol 30 mg Route: IVP; Site: right antecubital; tw2 09:30 Follow up: Response: No adverse reaction; Pain is decreased jl7 09:11 Drug: NS 0.9% 1000 ml Route: IV; Rate: 1 bolus; Site: right antecubital; tw2 10:00 Follow up: Response: No adverse reaction; IV Status: Completed infusion; IV Intake: jl7 1000ml 12:14 Drug: Ativan 1 mg Route: IVP; Site: right antecubital; jl7 12:45 Follow up: Response: No adverse reaction jl7 12:15 Drug: fentaNYL (PF) 50 mcg Route: IVP; Site: right antecubital; jl7 12:45 Follow up: Response: No adverse reaction jl7 Disposition: 12/27/18 14:40 Discharged to Home. Impression: acute headache, acute fever. - Condition is Stable. - Prescriptions for ketorolac 10 mg Oral tablet - take 1 tablet by ORAL route every 8 hours not to exceed 40 mg in 24hrs; 15 tablet. Zofran 4 mg Oral Tablet - take 1 tablet by ORAL route every 12 hours As needed; 20 tablet. - Work release form, Medication Reconciliation Form, Thank You Letter, Antibiotic Education, Prescription Opioid Use form. - Follow up: Private Physician; When: 1 - 2 days; Reason: Recheck today's complaints. - Problem is new. - Symptoms have improved. - Notes: please take medication as prescribed. return immediately for worsening concerns Signatures: Dispatcher [employer] EDAZ Yusra Lemos RN RN tw2 María Elena Prado RN RN jl7 Gigi Schuler MD MD wa Corrections: (The following items were deleted from the chart) 11:23 08:52 HIV AG/AB SCREEN ordered. [facility] 15:00 14:40 12/27/2018 14:40 Discharged to Home. Impression: acute headache; acute fever. jl7 Condition is Stable. Forms are Medication Reconciliation Form, Thank You Letter, Antibiotic Education, Prescription Opioid Use. Follow up: Private Physician; When: 1 - 2 days; Reason: Recheck today's complaints. Problem is new. Symptoms have improved. wa
--- NOTE | 2018-12-27 14:41 | ER ---
Nurse's Notes [facility] Name: Delroy Herrera Age: 23 yrs Sex: Male : 1995 Arrival Date: 12/27/2018 Time: 08:19 Bed 5 Private MD: Diagnosis: acute headache;acute fever Presentation: 12/27 08:29 Presenting complaint: Patient states: Fever since Thursday, JUAREZ since yesterday. Was here jl7 on Thursday but still doesn't feel good. Denies N/V/D. Transition of care: patient was not received from another setting of care. Onset of symptoms was December 24, 2018. Risk Assessment: Do you want to hurt yourself or someone else? Patient reports no desire to harm self or others. Initial Sepsis Screen: Does the patient meet any 2 criteria? No. Patient's initial sepsis screen is negative. Does the patient have a suspected source of infection? No. Patient's initial sepsis screen is negative. Care prior to arrival: Medication(s) given: Tylenol, at 0730. 08:29 Method Of Arrival: Ambulatory jl7 08:51 Acuity: NANCY 3 tw2 Triage Assessment: 08:31 Headache History: Denies prior headaches. General: Appears in no apparent distress. jl7 uncomfortable, Behavior is calm, cooperative. Pain: Complains of pain in JUAREZ Pain does not radiate. Pain currently is 8 out of 10 on a pain scale. Pain began 1 day ago. Also complains of no other associated symptoms. EENT: No signs and/or symptoms were reported regarding the EENT system. Neuro: Level of Consciousness is awake, alert, obeys commands, Oriented to person, place, time, situation. Cardiovascular: Patient's skin is warm and dry. Respiratory: Airway is patent Respiratory effort is even, unlabored, Respiratory pattern is regular, symmetrical. GI: No signs and/or symptoms were reported involving the gastrointestinal system. : No signs and/or symptoms were reported regarding the genitourinary system. Derm: Skin is pink, warm \T\ dry. Historical: - Allergies: 08:31 No Known Allergies; jl7 - Home Meds: 08:31 None [Active]; jl7 - PMHx: 08:31 None; jl7 - PSHx: 08:31 None; jl7 - Immunization history:: Adult Immunizations unknown. - Social history:: Smoking status: Patient/guardian denies using tobacco. - Ebola Screening: : No symptoms or risks identified at this time. - Family history:: not pertinent. - Hospitalizations: : No recent hospitalization is reported. Screenin:33 Abuse screen: Denies threats or abuse. Denies injuries from another. Nutritional jl7 screening: No deficits noted. Tuberculosis screening: No symptoms or risk factors identified. Fall Risk None identified. Assessment: 08:33 General: See triage assessment. jl7 09:36 Reassessment: Patient appears in no apparent distress at this time. No changes from tw2 previously documented assessment. Patient and/or family updated on plan of care and expected duration. Pain level reassessed. Patient is alert, oriented x 3, equal unlabored respirations, skin warm/dry/pink. 10:30 Reassessment: Patient appears in no apparent distress at this time. No changes from jl7 previously documented assessment. Patient and/or family updated on plan of care and expected duration. Pain level reassessed. Patient is alert, oriented x 3, equal unlabored respirations, skin warm/dry/pink. 11:22 Reassessment: Patient appears in no apparent distress at this time. No changes from tw2 previously documented assessment. Patient and/or family updated on plan of care and expected duration. Pain level reassessed. Patient is alert, oriented x 3, equal unlabored respirations, skin warm/dry/pink. 12:20 Reassessment: Patient appears in no apparent distress at this time. No changes from tw2 previously documented assessment. Patient and/or family updated on plan of care and expected duration. Pain level reassessed. Patient is alert, oriented x 3, equal unlabored respirations, skin warm/dry/pink. 12:42 Reassessment: LP complete, pt instructed to lay flat for 1 hour, pt verbalized jl7 understanding. Vital Signs: 08:31 BP 129 / 84; Pulse 80; Resp 16 S; Temp 99.9(O); Pulse Ox 97% on R/A; Pain 8/10; jl7 09:36 BP 127 / 79; Pulse 79; Resp 16; Temp 98.7(O); Pulse Ox 100% on R/A; tw2 10:32 BP 121 / 88; Pulse 75; Resp 18; Pulse Ox 100% on R/A; tw2 11:21 BP 124 / 83; Pulse 67; Resp 17; Pulse Ox 100% on R/A; tw2 12:20 BP 124 / 85; Pulse 78; Resp 17; Pulse Ox 100% on R/A; tw2 13:19 BP 129 / 87; Pulse 62; Resp 16 S; Pulse Ox 100% on R/A; jl7 ED Course: 08:19 Patient arrived in ED. mr 08:24 Gigi Schuler MD is Attending Physician. wa 08:29 María Elena Prado, TIBURCIO is Primary Nurse. jl7 08:31 Triage completed. jl7 08:31 Arm band placed on right wrist. jl7 08:33 Patient has correct armband on for positive identification. Bed in low position. Call jl7 light in reach. Side rails up X 1. Pulse ox on. NIBP on. 09:05 Inserted saline lock: 20 gauge in right antecubital area, using aseptic technique. tw2 Blood collected. 09:05 Initial lab(s) drawn, by ED staff, sent to lab. jl7 09:13 CT Head Brain wo Cont In Process Unspecified. EDMS 11:00 Urine collected: clean catch specimen, clear. jl7 12:00 Consent for a lumbar puncture explained by staff, explained by physician, signed by jl7 patient. 12:42 Assist provider with lumbar puncture: Set up LP tray. Performed by Gigi Schuler MD jl7 CSF is clear. Puncture site dressed with band aid, Procedure was successful. Patient tolerated well. 14:59 IV discontinued, intact, bleeding controlled, No redness/swelling at site. Pressure jl7 dressing applied. Administered Medications: 08:51 Drug: Tylenol 1000 mg Route: PO; tw2 09:30 Follow up: Response: No adverse reaction; Pain is decreased jl7 09:07 Drug: TORadol 30 mg Route: IVP; Site: right antecubital; tw2 09:30 Follow up: Response: No adverse reaction; Pain is decreased jl7 09:11 Drug: NS 0.9% 1000 ml Route: IV; Rate: 1 bolus; Site: right antecubital; tw2 10:00 Follow up: Response: No adverse reaction; IV Status: Completed infusion; IV Intake: jl7 1000ml 12:14 Drug: Ativan 1 mg Route: IVP; Site: right antecubital; jl7 12:45 Follow up: Response: No adverse reaction 12:15 Drug: fentaNYL (PF) 50 mcg Route: IVP; Site: right antecubital; 7 12:45 Follow up: Response: No adverse reaction jl7 Intake: 10:00 IV: 1000ml; Total: 1000ml. jl7 Outcome: 14:40 Discharge ordered by . claire 14:58 Discharged to home ambulatory, with family. jl 14:58 Condition: stable 14:58 Discharge instructions given to patient, family, Instructed on discharge instructions, follow up and referral plans. medication usage, Demonstrated understanding of instructions, follow-up care, medications, Prescriptions given X 2. 15:00 Patient left the ED. jl7 Signatures: Dispatcher [employer] Meggan Orellana Tara, RN RN tw2 María Elena Prado RN RN jl7 Gigi Schuler MD MD wa Corrections: (The following items were deleted from the chart) 08:51 08:29 Acuity: NANCY 4 jl7 tw2
== END 2018-12-27 15:00 | disposition home or self-care (01) ==
LOC: ER 08:14
PROC: 009U3ZX Drainage of Spinal Canal, Percutaneous Approach, Diagnostic (ICD-10-PCS; principal; 2018-12-27)
DX: R50.9 Fever, unspecified (principal)
CPT/HCPCS: 96361; 87070; 85025; 80048; 36415; 89050 ×2; 86308; 84157; 82945; 80076; 81003; 70450; 62270 ×2; 96375; 96374; 99285; G0433; J3010; J7030

== ENCOUNTER 2019-12-26 09:38 | Emergency (ER) | payer BC, OTHER ==
--- NOTE | 2019-12-26 11:05 | EDPHYS ---
Physician Documentation [facility] Name: Delroy Herrera Age: 24 yrs Sex: Male : 1995 Arrival Date: 12/26/2019 Time: 09:42 Bed 26 Private MD: ED Physician Larry Saeed HPI: 12/25 10:58 This 24 yrs old Black Male presents to ER via Ambulatory with complaints of Sinus carloz Congestion. 10:58 The patient or guardian reports flu symptoms, myalgias. carloz 10:58 The patient presents with stuffy. Onset: The symptoms/episode began/occurred 2 day(s) carloz ago. Modifying factors: The symptoms are alleviated by nothing. the symptoms are aggravated by nothing. Severity of symptoms: At their worst the symptoms were mild, moderate, in the emergency department the symptoms are unchanged. Associated signs and symptoms: The patient has no apparent associated signs or symptoms. Modifying factors: The symptoms are alleviated by nothing, the symptoms are aggravated by nothing. Severity of symptoms: At their worst the symptoms were mild in the emergency department the symptoms are unchanged. Historical: - Allergies: 10:25 No Known Allergies; ca1 - Home Meds: 10:25 None [Active]; ca1 - PMHx: 10:25 None; ca1 - PSHx: 10:25 None; ca1 - Immunization history:: Adult Immunizations up to date. - Social history:: Smoking status: Patient denies any tobacco usage or history of. - Family history:: not pertinent. ROS: 10:58 Constitutional: Negative for fever, chills, and weight loss, Eyes: Negative for injury, carloz pain, redness, and discharge, ENT: Negative for injury, pain, and discharge, Neck: Negative for injury, pain, and swelling, Cardiovascular: Negative for chest pain, palpitations, and edema, Respiratory: Negative for shortness of breath, cough, wheezing, and pleuritic chest pain, Abdomen/GI: Negative for abdominal pain, nausea, vomiting, diarrhea, and constipation, Back: Negative for injury and pain, : Negative for injury, bleeding, discharge, and swelling, MS/Extremity: Negative for injury and deformity, Skin: Negative for injury, rash, and discoloration, Neuro: Negative for headache, weakness, numbness, tingling, and seizure, Psych: Negative for depression, anxiety, suicide ideation, homicidal ideation, and hallucinations, Allergy/Immunology: Negative for hives, rash, and allergies, Endocrine: Negative for neck swelling, polydipsia, polyuria, polyphagia, and marked weight changes, Hematologic/Lymphatic: Negative for swollen nodes, abnormal bleeding, and unusual bruising. Exam: 10:58 Constitutional: This is a well developed, well nourished patient who is awake, alert, carloz and in no acute distress. Head/Face: Normocephalic, atraumatic. Eyes: Pupils equal round and reactive to light, extra-ocular motions intact. Lids and lashes normal. Conjunctiva and sclera are non-icteric and not injected. Cornea within normal limits. Periorbital areas with no swelling, redness, or edema. ENT: Nares patent. No nasal discharge, no septal abnormalities noted. Tympanic membranes are normal and external auditory canals are clear. Oropharynx with no redness, swelling, or masses, exudates, or evidence of obstruction, uvula midline. Mucous membranes moist. Neck: Trachea midline, no thyromegaly or masses palpated, and no cervical lymphadenopathy. Supple, full range of motion without nuchal rigidity, or vertebral point tenderness. No Meningismus. Chest/axilla: Normal chest wall appearance and motion. Nontender with no deformity. No lesions are appreciated. Cardiovascular: Regular rate and rhythm with a normal S1 and S2. No gallops, murmurs, or rubs. Normal PMI, no JVD. No pulse deficits. Respiratory: Lungs have equal breath sounds bilaterally, clear to auscultation and percussion. No rales, rhonchi or wheezes noted. No increased work of breathing, no retractions or nasal flaring. Abdomen/GI: Soft, non-tender, with normal bowel sounds. No distension or tympany. No guarding or rebound. No evidence of tenderness throughout. Back: No spinal tenderness. No costovertebral tenderness. Full range of motion. Skin: Warm, dry with normal turgor. Normal color with no rashes, no lesions, and no evidence of cellulitis. MS/ Extremity: Pulses equal, no cyanosis. Neurovascular intact. Full, normal range of motion. Neuro: Awake and alert, GCS 15, oriented to person, place, time, and situation. Cranial nerves II-XII grossly intact. Motor strength 5/5 in all extremities. Sensory grossly intact. Cerebellar exam normal. Normal gait. Psych: Awake, alert, with orientation to person, place and time. Behavior, mood, and affect are within normal limits. 10:58 Musculoskeletal/extremity: DVT Exam: No signs of deep vein thrombosis. no pain, no swelling, no tenderness, negative Homans' sign noted on exam, no appreciated bluish discoloration, no erythema, no increased warmth. Vital Signs: 10:22 BP 124 / 81; Pulse 91; Resp 17 S; Temp 99.3(O); Pulse Ox 99% on R/A; Weight 72.57 kg ca1 (R); Height 6 ft. 0 in. (182.88 cm) (R); 10:22 Body Mass Index 21.70 (72.57 kg, 182.88 cm) ca1 MDM: 10:30 Patient medically screened. [facility] 11:01 Data reviewed: vital signs, nurses notes, lab test result(s), covid pnd. Data carloz interpreted: groundwater monitoring technician: not applicable for this patient encounter. rate is 91 beats/min, rhythm is regular, Pulse oximetry: on room air is 99 %. Counseling: I had a detailed discussion with the patient and/or guardian regarding: lab results, radiology results, the need for outpatient follow up, for definitive care, a family practitioner, a buyer assistant. 11:05 Differential diagnosis: sinusitis. Differential Diagnosis: Bronchitis Influenza Upper carloz Respiratory Infection Sinusitis Pharyngitis Allergic Rhinitis Pneumonia. 12/25 10:31 Order name: COVID-19 [facility] Administered Medications: No medications were administered Disposition: 12/26/19 11:04 Discharged to Home. Impression: Acute sinusitis, Acute upper respiratory infection, unspecified. - Condition is Stable. - Discharge Instructions: COVID-19, Upper Respiratory Infection, Adult, Upper Respiratory Infection, Adult, [id number], Cough, Adult. - Prescriptions for dexamethasone 2 mg Oral tablet - take 1 tablet by ORAL route 3 times per day; 15 tablet. Zithromax Z- Ghulam 250 mg Oral Tablet - take 1 tablet by ORAL route as directed for 5 days Day 1 - take two (2) tablets one time. Day 2, 3, 4 , 5 take one (1) tablet once daily.; 6 tablet. - Medication Reconciliation Form, Thank You Letter, Antibiotic Education, Prescription Opioid Use form. - Follow up: Private Physician; When: 2 - 3 days; Reason: Recheck today's complaints, Continuance of care, Re-evaluation by your physician. Follow up: Ronan Wright MD; When: 2 - 3 days; Reason: Recheck today's complaints, Re-evaluation by your physician. - Problem is new. - Symptoms have improved. Signatures: Dispatcher [employer] EDDarcie Hernandez RN RN sv Anderson, Corey, MD MD cha Acob, Cheryl, RN RN [facility] Corrections: (The following items were deleted from the chart) 11:13 11:04 12/26/2019 11:04 Discharged to Home. Impression: Acute sinusitis; Acute upper sv respiratory infection, unspecified. Condition is Stable. Discharge Instructions: COVID-19. Forms are Medication Reconciliation Form, Thank You Letter, Antibiotic Education, Prescription Opioid Use. Follow up: Private Physician; When: 2 - 3 days; Reason: Recheck today's complaints, Continuance of care, Re-evaluation by your physician. Follow up: Ronan Wright; When: 2 - 3 days; Reason: Recheck today's complaints, Re-evaluation by your physician. Problem is new. Symptoms have improved. carloz
--- NOTE | 2019-12-26 11:05 | ER ---
Nurse's Notes [facility] Name: Delroy Herrera Age: 24 yrs Sex: Male : 1995 Arrival Date: 12/26/2019 Time: 09:42 Bed 26 Private MD: Diagnosis: Acute sinusitis;Acute upper respiratory infection, unspecified Presentation: 12/25 10:22 Chief complaint: Patient states: Thursday, headache, stuffy nose, tired and fatigued. ca1 Denies cough and fever. Coronavirus screen: Client denies travel out of the [place] in the last 14 days. congestion, fatigue, headache, Client presents with at least one sign or symptom that may indicate coronavirus-19. Standard/surgical mask placed on the client. Provider contacted for isolation considerations. Ebola Screen: Patient negative for fever greater than or equal to 101.5 degrees Fahrenheit, and additional compatible Ebola Virus Disease symptoms Patient denies exposure to infectious person. Patient denies travel to an Ebola-affected area in the 21 days before illness onset. No symptoms or risks identified at this time. Initial Sepsis Screen: Does the patient meet any 2 criteria? No. Patient's initial sepsis screen is negative. Does the patient have a suspected source of infection? No. Patient's initial sepsis screen is negative. Risk Assessment: Do you want to hurt yourself or someone else? Patient reports no desire to harm self or others. Onset of symptoms was December 26, 2019. 10:22 Method Of Arrival: Ambulatory ca1 10:22 Acuity: NANCY 4 ca1 Historical: - Allergies: 10:25 No Known Allergies; ca1 - Home Meds: 10:25 None [Active]; ca1 - PMHx: 10:25 None; ca1 - PSHx: 10:25 None; ca1 - Immunization history:: Adult Immunizations up to date. - Social history:: Smoking status: Patient denies any tobacco usage or history of. - Family history:: not pertinent. Screenin:28 Abuse screen: Denies threats or abuse. Denies injuries from another. Nutritional ca1 screening: No deficits noted. Tuberculosis screening: No symptoms or risk factors identified. Fall Risk None identified. Assessment: 10:28 General: Appears in no apparent distress. comfortable, Behavior is calm, cooperative, ca1 appropriate for age, Reports fatigue for 2-3 days. Pain: Denies pain. Neuro: Level of Consciousness is awake, alert, obeys commands, Oriented to person, place, time, situation. EENT: Reports nasal congestion. Derm: Skin is intact, is healthy with good turgor, Skin is pink, warm \T\ dry. Musculoskeletal: Circulation, motion, and sensation intact. Capillary refill < 3 seconds. Vital Signs: 10:22 BP 124 / 81; Pulse 91; Resp 17 S; Temp 99.3(O); Pulse Ox 99% on R/A; Weight 72.57 kg ca1 (R); Height 6 ft. 0 in. (182.88 cm) (R); 10:22 Body Mass Index 21.70 (72.57 kg, 182.88 cm) ca1 ED Course: 09:42 Patient arrived in ED. ag5 10:25 Triage completed. ca1 10:25 Arm band placed on right wrist. ca1 10:28 Patient has correct armband on for positive identification. Call light in reach. Side ca1 rails up X 1. Pulse ox on. NIBP on. 10:30 Larry Saeed MD is Attending Physician. [facility] 10:48 COVID-19 Sent. ca1 10:49 Lorna Billingsley, RN is Primary Nurse. ca1 10:50 No provider procedures requiring assistance completed. Patient did not have IV access ca1 during this emergency room visit. 11:03 Ronan Wright MD is Referral Physician. carloz Administered Medications: No medications were administered Outcome: 11:04 Discharge ordered by . [facility] 11:12 Discharged to home ambulatory. sv 11:12 Condition: stable 11:12 Discharge instructions given to patient, Instructed on discharge instructions, follow up and referral plans. medication usage, to be quarantined until he gets his COVID result Demonstrated understanding of instructions, follow-up care, medications, Prescriptions given X 2. 11:13 Patient left the ED. sv Addendum: 12/27/2019 18:25 Addendum: COVID-19 Result: Positive result giiven to ED physician to notify pt. a a5 Physician: Larry Saeed MD Physician was able to contact pt and pt was notified of positive COVID-19 swab result. Physician answered pt questions. Signatures: Darcie Hare RN RN sv Anderson, Corey, MD MD cha Calderon, Audri, RN RN aa5 Lorna Billingsley RN RN ca1 Romario, Josette ag5
[2019-12-26 11:22] VITALS: BP 124/81; TEMP 99.3; O2SAT 99
== END 2019-12-26 11:13 | disposition home or self-care (01) ==
LOC: ER 09:38
DX: J06.9 Acute upper respiratory infection, unspecified (principal); J01.90 Acute sinusitis, unspecified
CPT/HCPCS: 99283; U0002

== ENCOUNTER 2024-06-26 06:57 | Emergency (ER) | payer BC, SELFPAY ==
[2024-06-26] MEDS ORDERED: ACETAMINOPHEN 500 MG TAB ONE (07:30)
[2024-06-26] MEDS ORDERED: IBUPROFEN 400 MG TAB ONE (07:30)
[2024-06-26 08:21] LABS: SARS-CoV-2 Antigen CONTROL BLUE LINE VIS/BG OK; SARS-CoV-2 Antigen Rapid Res Negative (Negative)
--- NOTE | 2024-06-26 08:39 | EDPHYS ---
Physician Documentation [facility] Name: Delroy Herrera Age: 28 yrs Sex: Male : 1995 Arrival Date: 06/26/2024 Time: 06:57 Bed 12 Private MD: ED Physician Paulino Contreras HPI: 06/26 07:33 This 28 yrs old Black Male presents to ER via Ambulatory with complaints of Chills, rn Fatigue. 07:33 The patient reports fever, not measured (subjective). Onset: The symptoms/episode rn began/occurred just prior to arrival. Modifying factors: there are no obvious modifying factors. Severity of symptoms: At their worst the symptoms were mild in the emergency department the symptoms are unchanged. The patient has not experienced similar symptoms in the past. Patient reports subjective fever and chills, felt that when he woke up this morning and he felt cold. Reports had to turn off his air and using a 30 and pants to warm up. Patient denies any current symptoms. Denies any cough or congestion. No sore throat. No abdominal pain. No vomiting or diarrhea. No skin changes. No dental pain. No neck stiffness.. Historical: - Allergies: 07:32 No Known Allergies; hb - Home Meds: 07:32 None [Active]; hb - PMHx: 07:32 None; hb - PSHx: 07:32 None; hb - Immunization history:: Adult Immunizations up to date. - Infectious Disease History:: Denies. - Social history:: Smoking status: Patient denies any tobacco usage or history of. - Family history:: not pertinent. - Hospitalizations: : No recent hospitalization is reported. ROS: 07:33 Constitutional: Negative for fever, chills, and weight loss, Cardiovascular: Negative rn for chest pain, palpitations, and edema, Respiratory: Negative for shortness of breath, cough, wheezing, and pleuritic chest pain, Abdomen/GI: Negative for abdominal pain, nausea, vomiting, diarrhea, and constipation, Back: Negative for injury and pain, MS/Extremity: Negative for injury and deformity, Skin: Negative for injury, rash, and discoloration, Neuro: Negative for headache, weakness, numbness, tingling, and seizure, Exam: 07:33 Constitutional: This is a well developed, well nourished patient who is awake, alert, rn and in no acute distress. Ambulatory to room without difficulty or assistance Head/Face: Normocephalic, atraumatic. ENT: Moist mucous membranes, mild pharyngeal erythema, no exudate, uvula midline Cardiovascular: Tachycardic, regular. No pulse deficits. Respiratory: Speaking full sentences, unlabored. No increased work of breathing, no retractions or nasal flaring. Abdomen/GI: Soft, non-tender Skin: Warm, dry Neuro: Awake and alert, GCS 15 Vital Signs: 07:32 BP 118 / 82; Pulse 126; Resp 18; Temp 102.2(O); Pulse Ox 98% on R/A; Weight 70.76 kg; hb Height 6 ft. 1 in. ; Pain 1/10; 08:34 BP 126 / 76; Pulse 94; Resp 16; Temp 99.6; Pulse Ox 100% on R/A; Pain 1/10; hb 07:32 Body Mass Index 20.58 (70.76 kg, 185.42 cm) hb 07:32 Pain Scale: Adult hb 08:34 Pain Scale: Adult hb MDM: 07:27 Medical Screening Exam initiated rn 08:38 Differential diagnosis: viral Infection, URI. 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 Counseling: I had a detailed discussion with the patient and/or guardian regarding the historical points, exam findings, and any diagnostic results supporting the discharge/admit diagnosis, lab results, the need for outpatient follow up, to return to the emergency department if symptoms worsen or persist or if there are any questions or concerns that arise at home. Response to treatment: the patient's symptoms have markedly improved after treatment, and as a result, I will discharge patient. Special discussion: I discussed with the patient/guardian in detail that at this point there is no indication for admission to the hospital. It is understood, however, that if the symptoms persist or worsen the patient needs to return immediately for re-evaluation. ED course: No acute findings and workup. Had long discussion with patient and told him very early in illness, only had 1 hour of fever and chills at home. No obvious symptoms at this time. Most likely viral illness, return precautions given and understood.. 06/26 07:33 Order name: Strep rn 06/26 07:06 Order name: Flu; Complete Time: 08:38 rn 06/26 07:06 Order name: SARS-COV-2 Antigen Rapid; Complete Time: 08:38 rn 06/26 08:25 Order name: Throat Culture EDMS Administered Medications: 07:38 Drug: Acetaminophen PO 1000 mg PO once Route: PO; hb 08:30 Follow up: Response: No adverse reaction hb 07:38 Drug: Ibuprofen PO 800 mg PO once Route: PO; hb 08:30 Follow up: Response: No adverse reaction hb Disposition Summary: 06/26/24 08:39 Discharge Ordered Notes: Location: Home rn Problem: new rn Symptoms: have improved rn Condition: Stable rn Diagnosis - Fever, unspecified rn Followup: rn - With: Private Physician - When: As needed - Reason: Recheck today's complaints, Re-evaluation by your physician Discharge Instructions: - Discharge Summary Sheet rn - Fever, Adult rn Forms: - Medication Reconciliation Form rn - Antibiotic journey lineman - Prescription Opioid Use rn - Patient Portal Instructions rn - Leadership Thank You Letter rn - Work release form hb Signatures: Dispatcher [employer] [facility] Paulino Contreras MD MD rn Baxter, Heather, RN RN Corrections: (The following items were deleted from the chart) 07:07 07:07 Influenza Screen (A \T\ B)+BA.LAB.BRZ ordered. EDWI EDWI 07:07 07:07 SARS-COV-2 Antigen Rapid+I.LAB.BRZ ordered. [facility] EDWI 08:11 07:33 Constitutional: This is a well developed, well nourished patient who is awake, rn alert, and in no acute distress. Ambulatory to room without difficulty or assistance Head/Face: Normocephalic, atraumatic. ENT: Moist mucous membranes, mild pharyngeal erythema, no exudate, uvula midline Cardiovascular: Tachycardic, regular. No pulse deficits. Respiratory: Speaking full sentences, unlabored. No increased work of breathing, no retractions or nasal flaring. Abdomen/GI: Soft, non-tender Skin: Warm, dry Neuro: Awake and alert, GCS 15 rn
--- NOTE | 2024-06-26 08:39 | ER ---
Nurse's Notes [facility] Name: Delroy Herrera Age: 28 yrs Sex: Male : 1995 Arrival Date: 06/26/2024 Time: 06:57 Bed 12 Private MD: Diagnosis: Fever, unspecified Presentation: 06/26 07:32 Chief complaint: Chills, fever, and malaise upon waking today. Coronavirus screen: hb Client presents with at least one sign or symptom that may indicate coronavirus-19. Standard/surgical mask placed on the client. Provider contacted for isolation considerations. Ebola Screen: No symptoms or risks identified at this time. Initial Sepsis Screen: Does the patient meet any 2 criteria? No. Patient's initial sepsis screen is negative. Does the patient have a suspected source of infection? No. Patient's initial sepsis screen is negative. Risk Assessment: Do you want to hurt yourself or someone else? Patient reports no desire to harm self or others. Onset of symptoms was June 26, 2024. 07:32 Method Of Arrival: Ambulatory 07:32 Acuity: NANCY 4 hb Triage Assessment: 07:33 General: Appears in no apparent distress. Behavior is calm, cooperative. Pain: Pain hb currently is 1 out of 10 on a pain scale. Neuro: GCS 15. Cardiovascular: Patient's skin is warm and dry. Respiratory: Respiratory effort is even, unlabored, Respiratory pattern is regular, symmetrical. Historical: - Allergies: 07:32 No Known Allergies; hb - Home Meds: 07:32 None [Active]; hb - PMHx: 07:32 None; hb - PSHx: 07:32 None; hb - Immunization history:: Adult Immunizations up to date. - Infectious Disease History:: Denies. - Social history:: Smoking status: Patient denies any tobacco usage or history of. - Family history:: not pertinent. - Hospitalizations: : No recent hospitalization is reported. Screenin:34 [facility] ED Fall Risk Assessment (Adult) History of falling in the last 3 months, hb including since admission No falls in past 3 months (0 pts) Confusion or Disorientation No (0 pts) Intoxicated or Sedated No (0 pts) Impaired Gait No (0 pts) Mobility Assist Device Used No (0 pt) Altered Elimination No (0 pt) Score/Fall Risk Level 0 - 2 = Low Risk Oriented to surroundings, Maintained a safe environment, Educated pt \T\ family on fall prevention, incl call for assistance when getting out of bed. Abuse screen: Denies threats or abuse. Denies injuries from another. Nutritional screening: No deficits noted. Tuberculosis screening: No symptoms or risk factors identified. Assessment: 07:34 General: SEE TRIAGE ASSESSMENT. hb 08:39 Reassessment: Patient appears in no apparent distress at this time. Patient and/or hb family updated on plan of care and expected duration. Pain level reassessed. Patient is alert, oriented x 3, equal unlabored respirations, skin warm/dry/pink. Patient states symptoms have improved. Vital Signs: 07:32 BP 118 / 82; Pulse 126; Resp 18; Temp 102.2(O); Pulse Ox 98% on R/A; Weight 70.76 kg; hb Height 6 ft. 1 in. ; Pain 1/10; 08:34 BP 126 / 76; Pulse 94; Resp 16; Temp 99.6; Pulse Ox 100% on R/A; Pain 1/10; hb 07:32 Body Mass Index 20.58 (70.76 kg, 185.42 cm) hb 07:32 Pain Scale: Adult hb 08:34 Pain Scale: Adult hb ED Course: 07:02 Patient arrived in ED. gm2 07:06 Paulino Contreras MD is Attending Physician. rn 07:32 Triage completed. hb 07:33 Arm band placed on. hb 07:34 Patient has correct armband on for positive identification. Provided Education on: hb TESTS, RESULT TIMES, USE OF CALL LIGHT, MEDICATIONS. 07:34 No provider procedures requiring assistance completed. Patient did not have IV access hb during this emergency room visit. 07:39 SARS-COV-2 Antigen Rapid Sent. hb 07:39 Flu Sent. hb 08:30 Zakiya Velez, RN is Primary Nurse. hb Administered Medications: 07:38 Drug: Acetaminophen PO 1000 mg PO once Route: PO; hb 08:30 Follow up: Response: No adverse reaction hb 07:38 Drug: Ibuprofen PO 800 mg PO once Route: PO; hb 08:30 Follow up: Response: No adverse reaction hb Medication: 07:34 VIS not applicable for this client. hb Outcome: 08:39 Discharge ordered by . rn 08:40 Discharged to home ambulatory, hb 08:40 Condition: stable 08:40 Discharge instructions given to patient, Instructed on discharge instructions, follow up and referral plans. medication usage, Demonstrated understanding of instructions, follow-up care, medications, 08:52 Patient left the ED. hb Signatures: Paulino Contreras MD MD rn Baxter, Heather, RN RN hb Mitchell, Ginger gm2 Corrections: (The following items were deleted from the chart) 07:33 07:32 BP 118 / 82; Pulse 126bpm; Resp 18bpm; Pulse Ox 98% RA; Temp 102.2F Oral; hb hb 08:40 08:39 Reassessment: Patient appears in no apparent distress at this time. Patient hb and/or family updated on plan of care and expected duration. Pain level reassessed. Patient is alert, oriented x 3, equal unlabored respirations, skin warm/dry/pink. hb
[2024-06-26 08:57] VITALS: BP 126/76; TEMP 99.6; O2SAT 100
== END 2024-06-26 08:52 | disposition home or self-care (01) ==
LOC: ER 06:57
DX: R50.9 Fever, unspecified (principal); R53.83 Other fatigue; Z11.52 Encounter for screening for COVID-19
CPT/HCPCS: 36415; 87070; 87081; 87804; 87811; 99283